=== PATIENT | male | born 1970 | race African-American/Black ===

== ENCOUNTER 2016-09-18 23:09 | Emergency (ER) | payer MEDICAID ==
[~2016-09-18] VITALS: Ht 175.3 cm; Wt 81.6 kg
[2016-09-18 23:21] VITALS: BP 142/93
[2016-09-19] MEDS ORDERED: SODIUM CHLORIDE 0.9% 1,000 ML IVB ONE (00:12)
[2016-09-19] MEDS ORDERED: LORazepam 2MG/ML-1ML VIAL IV ONE (00:15)
[2016-09-19] MEDS ORDERED: cloNIDine HCL 0.1 MG TAB PO ONE (00:15)
[2016-09-19 00:48] LABS: Salicylate 2.8 mg/dL (2.8-20.0)
== END 2016-09-19 04:29 | disposition home or self-care (01) ==
LOC: ER 23:43
DX: F11.23 Opioid dependence with withdrawal (principal); R45.851 Suicidal ideations; F41.9 Anxiety disorder, unspecified; F32.9 Major depressive disorder, single episode, unspecified; I10 Essential (primary) hypertension; F17.200 Nicotine dependence, unspecified, uncomplicated
CPT/HCPCS: 36415; 71010; 80307; 80320; 80329; 94761; 96361; 96374; 99285; J2060; J7030

== ENCOUNTER 2017-09-27 20:26 | Emergency (ER) | payer MEDICAID ==
[~2017-09-27] VITALS: Ht 175.3 cm; Wt 82.1 kg
[2017-09-27 21:56] VITALS: BP 136/93
[2017-09-27 22:09] LABS: Basophils # (auto) 0.1 uL; Basophils % (auto) 0.4 % (0.0-2.0); Eosinophils # (auto) 0.1 uL; Eosinophils % (auto) 0.6 % (0.0-7.0); Hematocrit 46.6 % (41.0-53.0); Hemoglobin 15.7 g/dL (13.5-17.5); Lymphocytes # (auto) 2.8 uL; Lymphocytes % (auto) 19.1 % (10.0-50.0); Mean Corpuscular Hemoglobin 30.3 pg (28.0-32.0); Mean Corpuscular Hgb Conc. 33.6 g/dL (32.0-36.0); Mean Corpuscular Volume 90.1 fL (80.0-100.0); Monocytes % (auto) 6.9 % (0.0-12.0); Neutrophils # (auto) 10.8 uL; Nucleated Red Blood Cells % 0.8 %; Platelet Count (auto) 443 10^3/uL (140-450); Red Blood Cells 5.17 10^6/uL (4.5-5.90); Red Cell Distribution Width 13.5 % (11.8-14.3); White Blood Cell 14.7 10^3/uL (4.4-10.8)
[2017-09-27] MEDS ORDERED: SODIUM CHLORIDE 0.9% 2,000 ML IV ONE (22:15)
[2017-09-27 22:29] LABS: Albumin 4.4 g/dL (3.4-5.0); BUN/Creatinine Ratio 13.7; Bilirubin, Total 1.4 mg/dL (0.2-1.0); Calcium 9.3 mg/dL (8.5-10.1); Magnesium 2.5 mg/dL (1.6-2.6); Partial Thromboplastin Time 29.1 sec (23.78-33.04); Potassium 3.6 mmol/L (3.5-5.1); Prothrombin Time 10.7 sec (9.27-12.13); Total Protein 8.8 g/dL (6.4-8.2)
== END 2017-09-28 02:00 | disposition home or self-care (01) ==
LOC: EDBD 20:26 → ER 20:26
DX: E86.0 Dehydration (principal); F15.10 Other stimulant abuse, uncomplicated; F41.9 Anxiety disorder, unspecified; F32.9 Major depressive disorder, single episode, unspecified; I10 Essential (primary) hypertension; F17.210 Nicotine dependence, cigarettes, uncomplicated; F12.10 Cannabis abuse, uncomplicated; Z88.6 Allergy status to analgesic agent
CPT/HCPCS: 36415; 80053; 82150; 83690; 83735; 85025; 85610; 85730; 94761; 96360; 99285; J7030

== ENCOUNTER 2017-12-18 01:45 | Emergency (ER) | payer MEDICAID ==
[~2017-12-18] VITALS: Ht 175.3 cm; Wt 81.6 kg
[2017-12-18] MEDS ORDERED: ACETAMINOPHEN 650 mg PER 20 mL UD ONE (02:14)
[2017-12-18] MEDS ORDERED: ACETAMINOPHEN 650 mg PER 20 mL UD GT ONE (02:15)
[2017-12-18] MEDS ORDERED: SODIUM CHLORIDE 0.9% 1,000 ML IV ONE ×2 (05:00→07:00)
[2017-12-18] MEDS ORDERED: IOHEXOL 300 MG/ML 100ML BOTTLE IJ ONE (05:04)
[2017-12-18] MEDS ORDERED: CLINDAMYCIN 900MG IV 50 ML IV ONE (07:00)
[2017-12-18] MEDS ORDERED: methylPREDNISolone SOD SUCC 125 MG/2 ML VL IV ONE (07:00)
[2017-12-18] MEDS ORDERED: cefTRIAXone SOD 1,000 MG VL IM ONE (07:15)
[2017-12-18] MEDS ORDERED: methylPREDNISolone SOD SUCC 125 MG/2 ML VL IM ONE (07:15)
[2017-12-18 07:40] VITALS: BP 130/72
== END 2017-12-18 07:50 | disposition home or self-care (01) ==
LOC: ER 01:45
DX: J36 Peritonsillar abscess (principal); F17.210 Nicotine dependence, cigarettes, uncomplicated; F12.90 Cannabis use, unspecified, uncomplicated; F15.90 Other stimulant use, unspecified, uncomplicated; I10 Essential (primary) hypertension; Z88.6 Allergy status to analgesic agent
CPT/HCPCS: 70490; 96372; 99284; J0696; J2930; J7030

== ENCOUNTER 2018-04-20 13:04 | Emergency (ER) | payer MEDICAID ==
[~2018-04-20] VITALS: Ht 175.3 cm; Wt 86.0 kg
[2018-04-20 13:26] VITALS: BP 174/104
[2018-04-20] MEDS ORDERED: cefTRIAXone 1GM/50ML D5W 50 ML IV ONE (16:30)
[2018-04-20] MEDS ORDERED: TETANUS-DIPTH-ACEL PERTUSSIS 0.5ML SYRG IM ONE (16:45)
[2018-04-20] MEDS ORDERED: cefTRIAXone SOD 1,000 MG VL IM ONE ×2 (16:45→17:45)
[2018-04-20] MEDS ORDERED: cefTRIAXone SOD 1,000 MG VL ONE (17:39)
== END 2018-04-20 17:56 | disposition left against medical advice (07) ==
LOC: ER 13:04
DX: S61.432A Puncture wound without foreign body of left hand, initial encounter (principal); F17.210 Nicotine dependence, cigarettes, uncomplicated; F12.10 Cannabis abuse, uncomplicated; I10 Essential (primary) hypertension; F15.10 Other stimulant abuse, uncomplicated; Z88.6 Allergy status to analgesic agent; W26.0XXA Contact with knife, initial encounter; Y93.89 Activity, other specified; Y92.89 Other specified places as the place of occurrence of the external cause; Y99.8 Other external cause status
CPT/HCPCS: 73130; 73200; 90471; 90715; 96372; 99284; J0696

== ENCOUNTER 2018-06-13 11:20 | Emergency (ER) | payer MEDICAID ==
[~2018-06-13] VITALS: Ht 172.7 cm; Wt 81.6 kg
[2018-06-13] MEDS ORDERED: cefTRIAXone SOD 1,000 MG VL IM ONE (12:00)
[2018-06-13] MEDS ORDERED: CLINDAMYCIN 600 MG/4 ML VL IM ONE (12:00)
[2018-06-13 14:28] LABS: Basophils # (auto) 0 uL; Basophils % (auto) 0.4 % (0.0-2.0); Eosinophils # (auto) 0.1 uL; Eosinophils % (auto) 1.1 % (0.0-7.0); Hematocrit 42.8 % (41.0-53.0); Hemoglobin 14.2 g/dL (13.5-17.5); Lymphocytes # (auto) 1.7 uL; Lymphocytes % (auto) 14.5 % (10.0-50.0); Mean Corpuscular Hemoglobin 29.8 pg (28.0-32.0); Mean Corpuscular Hgb Conc. 33.2 g/dL (32.0-36.0); Mean Corpuscular Volume 89.8 fL (80.0-100.0); Monocytes # (auto) 0.8 uL; Neutrophils # (auto) 9.2 uL; Platelet Count (auto) 356 10^3/uL (140-450); Red Blood Cells 4.77 10^6/uL (4.5-5.90); Red Cell Distribution Width 12.4 % (11.8-14.3); White Blood Cell 11.9 10^3/uL (4.4-10.8)
[2018-06-13 14:39] LABS: Potassium 3.5 mmol/L (3.5-5.1)
[2018-06-13 14:42] LABS: Calcium 8.9 mg/dL (8.5-10.1)
[2018-06-13 14:45] LABS: BUN/Creatinine Ratio 21.3
[2018-06-13 14:48] LABS: Bilirubin, Total 1.2 mg/dL (0.2-1.0); Total Protein 8.7 g/dL (6.4-8.2)
[2018-06-13] MEDS ORDERED: LIDOCAINE 1% HCL (LOCAL ANESTH.) INJ 20ML MDV ONE (16:06)
[2018-06-13 16:15] VITALS: BP 136/81
[2018-06-13] MEDS ORDERED: LIDOCAINE 1% HCL (LOCAL ANESTH.) INJ 20ML MDV IJ ONE (16:30)
== END 2018-06-13 17:25 | disposition home or self-care (01) ==
LOC: EDBD 11:20 → ER 11:44
DX: L03.113 Cellulitis of right upper limb (principal); F19.10 Other psychoactive substance abuse, uncomplicated; I10 Essential (primary) hypertension; F17.210 Nicotine dependence, cigarettes, uncomplicated; F12.90 Cannabis use, unspecified, uncomplicated; F15.90 Other stimulant use, unspecified, uncomplicated; Z88.6 Allergy status to analgesic agent
CPT/HCPCS: 36415; 80053; 85025; 87040; 96372; 99283; J0696; J2001

== ENCOUNTER 2020-04-21 18:01 | Emergency (ER) | payer MEDICAID ==
[~2020-04-21] VITALS: Ht 175.3 cm; Wt 90.7 kg
[2020-04-21 18:34] VITALS: BP 173/96
== END 2020-04-21 19:49 | disposition home or self-care (01) ==
LOC: ER 18:01 → EDSEX 18:01 → ER 19:49
DX: L02.413 Cutaneous abscess of right upper limb (principal); I10 Essential (primary) hypertension; F11.10 Opioid abuse, uncomplicated; F41.9 Anxiety disorder, unspecified; F32.9 Major depressive disorder, single episode, unspecified; F12.10 Cannabis abuse, uncomplicated; F15.10 Other stimulant abuse, uncomplicated; Z88.6 Allergy status to analgesic agent

== ENCOUNTER 2022-11-27 17:22 | Emergency (ER) | payer MEDICAID ==
[~2022-11-27] VITALS: Ht 182.9 cm; Wt 100.0 kg
[2022-11-27 17:56] VITALS: O2SAT 98
[2022-11-27] MEDS ORDERED: ONDANSETRON HCL 4 MG/2 ML VIAL IV ONE (18:30)
[2022-11-27] MEDS ORDERED: MORPHINE SULFATE 4 MG/ML SYR/VIAL IV ONE ×2 (18:30)
[2022-11-27 19:28] LABS: Urine Bacteria NONE SEEN /hpf (None Seen); Urine Blood Negative /uL (Negative); Urine Clarity Clear (Clear); Urine Color Yellow (Yellow); Urine Mucus FEW (None Seen); Urine Protein, UAD 1+ (Negative); Urine Specific Gravity 1.029 (1.001-1.035); Urine Sperm PRESENT /hpf (None Seen); Urine WBC 11 /hpf (0 - 3); Urine pH 6.5 (5.0-8.0)
[2022-11-27 19:50] VITALS: PULSE 88; RESP 20; O2SAT 95
[2022-11-27 20:30] VITALS: O2SAT 90
[2022-11-27] MEDS ORDERED: HYDR-4902 PO (21:36)
[2022-11-27] MEDS ORDERED: CYCL-837 PO (21:36)
[2022-11-27 22:05] VITALS: BP 166/84; PULSE 85; RESP 18
[2022-11-27] MEDS ORDERED: diazePAM 5 MG TAB PO ONE (22:15)
== END 2022-11-28 00:35 | disposition home or self-care (01) ==
LOC: ER 17:22 → EDBD 17:22 → ER 22:55
DX: S42.491A Other displaced fracture of lower end of right humerus, initial encounter for closed fracture (principal); S09.8XXA Other specified injuries of head, initial encounter; F17.210 Nicotine dependence, cigarettes, uncomplicated; F12.10 Cannabis abuse, uncomplicated; F15.10 Other stimulant abuse, uncomplicated; F14.10 Cocaine abuse, uncomplicated; I10 Essential (primary) hypertension; Z88.6 Allergy status to analgesic agent; V49.9XXA Car occupant (driver) (passenger) injured in unspecified traffic accident, initial encounter; W22.10XA Striking against or struck by unspecified automobile airbag, initial encounter; Y93.89 Activity, other specified; Y92.89 Other specified places as the place of occurrence of the external cause; Y99.8 Other external cause status
CPT/HCPCS: 29105; 70450; 72125; 73060; 73080; 73110; 74176; 81001; 93005; 96374; 96375; 96376; 99285; J2270; J2405

== ENCOUNTER 2023-09-04 17:05 | Emergency (ER) | payer MEDICAID, OTHER ==
[~2023-09-04] VITALS: Ht 177.8 cm; Wt 110.0 kg
[~2023-09-04 17:05] MED LIST: CYCL-837 PO; HYDR-4902 PO
[2023-09-04 17:30] VITALS: RESP 16
[2023-09-04] MEDS ORDERED: NALO4SPR2 (18:42)
[2023-09-04] MEDS: SODIUM CHLORIDE 0.9% 1,000 ML IV ONE (18:48)
[2023-09-04 19:02] LABS: Basophils # (auto) 0.1 10 ^3/uL (0-0.2); Basophils % (auto) 0.6 % (0.0-2.0); Eosinophils # (auto) 0.1 10 ^3/uL (0-0.8); Eosinophils % (auto) 0.6 % (0.0-7.0); Hematocrit 44.3 % (41.0-53.0); Hemoglobin 15.1 g/dL (13.5-17.5); Lymphocytes # (auto) 2.8 10 ^3/uL (0.4-5.4); Lymphocytes % (auto) 25.3 % (10.0-50.0); Mean Corpuscular Hemoglobin 30.4 pg (28.0-32.0); Mean Corpuscular Volume 89.5 fL (80.0-100.0); Monocytes # (auto) 0.9 10 ^3/uL (0-1.3); Monocytes % (auto) 7.8 % (0.0-12.0); Neutrophils # (auto) 7.2 10 ^3/uL (1.6-8.6); Neutrophils % (auto) 65.7 % (37.0-80.0); Nucleated Red Blood Cells % 0.3 %; Red Blood Cells 4.95 10^6/uL (4.5-5.90); Red Cell Distribution Width 12.6 % (11.8-14.3); White Blood Cell 10.9 10^3/uL (4.4-10.8)
[2023-09-04 19:21] LABS: Acetaminophen < 2.0 UG/ML (10.0-20.0); Alanine Aminotransferase 54 U/L (7-40); Albumin 4.4 g/dL (3.2-4.8); Alkaline Phosphatase 138 U/L (46-116); Anion Gap 6 (5-15); Aspartate Aminotransferase 37 U/L (13-40); BUN/Creatinine Ratio 9.3 (10.0-20.0); Bilirubin, Total 1.2 mg/dL (0.2-1.0); Blood Alcohol < 3.0 mg/dL (<10); Blood Urea Nitrogen 9 mg/dL (9-23); Calcium 9.3 mg/dL (8.5-10.1); Carbon Dioxide 27 mmol/L (20-30); Chloride 108 mmol/L (98-107); Glucose 100 mg/dL (74-106); Potassium 2.7 mmol/L (3.5-5.1); Sodium 141 mmol/L (136-145); Total Protein 7.7 g/dL (5.7-8.2)
[2023-09-04 19:26] LABS: Salicylate < 3.0 mg/dL (2.8-20.0)
[2023-09-04 19:45] VITALS: PULSE 84; RESP 18; O2SAT 98
[2023-09-04 21:25] LABS: Amphetamine Screen, Urine Pos (NEGATIVE); Barbiturate Scree,Urine Neg (NEGATIVE); Benzodiazephine Screen, Urine Neg (NEGATIVE); Cocaine Screen, Urine Neg (NEGATIVE)
[2023-09-04 21:26] LABS: Cannabinoid Screen, Urine Pos (NEGATIVE); Opiate Scree,Urine Neg (NEGATIVE); Phencyclidine Screen, Urine Pos (NEGATIVE)
[2023-09-04] MEDS: POTASSIUM CHL 20MEQ/100ML 100 ML IV ONE (21:27)
[2023-09-04 21:53] LABS: Urine Bacteria FEW /hpf (None Seen); Urine Blood 1+ /uL (Negative); Urine Clarity Turbid (Clear); Urine Color Yellow (Yellow); Urine Hyaline Cast MOD /lpf (0 - 2); Urine Mucus FEW (None Seen); Urine Protein, UAD 1+ (Negative); Urine Specific Gravity 1.026 (1.001-1.035); Urine Urobilinogen 4 mg/dL (Negative); Urine WBC 297 /hpf (0 - 3); Urine WBC Clumps PRESENT /hpf (None Seen)
[2023-09-04] MEDS ORDERED: CEPH500C PO (22:19)
[2023-09-04] MEDS: cefTRIAXone 1GM/50ML D5W 50 ML IV ONE (23:25)
[2023-09-04 23:30] VITALS: BP 156/85; PULSE 99; RESP 16; O2SAT 95
== END 2023-09-05 00:02 | disposition home or self-care (01) ==
LOC: EDBD 17:05 → EDUNIT# 17:05 → ER 17:05
DX: T40.411A Poisoning by fentanyl or fentanyl analogs, accidental (unintentional), initial encounter (principal); N39.0 Urinary tract infection, site not specified; E87.6 Hypokalemia; I10 Essential (primary) hypertension; F41.9 Anxiety disorder, unspecified; F32.9 Major depressive disorder, single episode, unspecified; F17.210 Nicotine dependence, cigarettes, uncomplicated; F15.90 Other stimulant use, unspecified, uncomplicated; Z88.8 Allergy status to other drugs, medicaments and biological substances; Z79.899 Other long term (current) drug therapy; Y92.89 Other specified places as the place of occurrence of the external cause
CPT/HCPCS: 36415; 80053; 80307; 80320; 80329; 81001; 85025; 93005; 96361; 96365; 96366; 96367; 99285; J0696; J3480; J7030

== ENCOUNTER 2023-09-21 16:10 | Emergency (ER) | payer MEDICAID ==
[~2023-09-21] VITALS: Ht 175.3 cm; Wt 97.7 kg
[~2023-09-21 16:10] MED LIST changes: +CEPH500C PO; +NALO4SPR2
[2023-09-21 16:30] VITALS: PULSE 81; RESP 14; O2SAT 96
[2023-09-21 17:04] LABS: Basophils # (auto) 0 10 ^3/uL (0-0.2); Basophils % (auto) 0.5 % (0.0-2.0); Eosinophils # (auto) 0.1 10 ^3/uL (0-0.8); Eosinophils % (auto) 1.7 % (0.0-7.0); Hemoglobin 13.6 g/dL (13.5-17.5); Lymphocytes % (auto) 28.6 % (10.0-50.0); Mean Corpuscular Hemoglobin 30.3 pg (28.0-32.0); Mean Corpuscular Hgb Conc. 33.9 g/dL (32.0-36.0); Mean Corpuscular Volume 89.5 fL (80.0-100.0); Monocytes # (auto) 0.6 10 ^3/uL (0-1.3); Neutrophils # (auto) 4.3 10 ^3/uL (1.6-8.6); Neutrophils % (auto) 60.2 % (37.0-80.0); Red Blood Cells 4.47 10^6/uL (4.5-5.90); Red Cell Distribution Width 12.6 % (11.8-14.3); White Blood Cell 7.2 10^3/uL (4.4-10.8)
[2023-09-21 17:22] LABS: Acetaminophen < 2.0 UG/ML (10.0-20.0); Alanine Aminotransferase 56 U/L (7-40); Alkaline Phosphatase 128 U/L (46-116); Anion Gap 5 (5-15); Aspartate Aminotransferase 51 U/L (13-40); BUN/Creatinine Ratio 11.8 (10.0-20.0); Blood Urea Nitrogen 9 mg/dL (9-23); Carbon Dioxide 34 mmol/L (20-30); Chloride 103 mmol/L (98-107); Potassium 3.8 mmol/L (3.5-5.1); Sodium 142 mmol/L (136-145); Total Protein 7.1 g/dL (5.7-8.2)
[2023-09-21 17:33] LABS: Glucose 99 mg/dL (74-106)
[2023-09-21 17:53] LABS: Salicylate < 3.0 mg/dL (2.8-20.0)
[2023-09-21 19:20] VITALS: PULSE 79; RESP 13; TEMP 97.6; O2SAT 96
[2023-09-21 21:19] VITALS: BP 174/90; PULSE 76; RESP 15; O2SAT 93
== END 2023-09-21 21:20 | disposition home or self-care (01) ==
LOC: ER 16:10 → EDUNIT# 16:10 → EDBD 16:10 → ER 21:20
DX: T60.91XA Toxic effect of unspecified pesticide, accidental (unintentional), initial encounter (principal); F41.9 Anxiety disorder, unspecified; F32.9 Major depressive disorder, single episode, unspecified; I10 Essential (primary) hypertension; F17.210 Nicotine dependence, cigarettes, uncomplicated; F12.10 Cannabis abuse, uncomplicated; F15.10 Other stimulant abuse, uncomplicated; F14.10 Cocaine abuse, uncomplicated; Z71.1 Person with feared health complaint in whom no diagnosis is made; Y92.9 Unspecified place or not applicable
CPT/HCPCS: 36415; 80053; 80320; 80329; 85025; 93005

== ENCOUNTER 2023-12-06 16:04 | Emergency (ER) | payer MEDICAID ==
[~2023-12-06] VITALS: Ht 175.3 cm; Wt 95.3 kg
[2023-12-06 16:19] VITALS: O2SAT 95
[2023-12-06 17:24] VITALS: BP 172/93; PULSE 89; RESP 18
[2023-12-06] MEDS: MEPERIDINE HCL (50 MG/ML) 1 ML VIAL IM ONE (17:24)
[2023-12-06] MEDS: ONDANSETRON ODT 4 MG TAB PO ONE (17:30)
[2023-12-06] MEDS ORDERED: HYDR-4798 PO (17:38)
[2023-12-06] MEDS ORDERED: PRED20TA2 PO (17:38)
== END 2023-12-06 17:53 | disposition home or self-care (01) ==
LOC: ER 16:04
DX: M51.369 Other intervertebral disc degeneration, lumbar region without mention of lumbar back pain or lower extremity pain (principal); G89.29 Other chronic pain; M54.50 Low back pain, unspecified; M47.816 Spondylosis without myelopathy or radiculopathy, lumbar region; I10 Essential (primary) hypertension; F41.9 Anxiety disorder, unspecified; F32.9 Major depressive disorder, single episode, unspecified; F17.210 Nicotine dependence, cigarettes, uncomplicated; F15.90 Other stimulant use, unspecified, uncomplicated; Z88.6 Allergy status to analgesic agent; Z79.899 Other long term (current) drug therapy; Z88.8 Allergy status to other drugs, medicaments and biological substances
CPT/HCPCS: 72100; 96372; 99283; J2175; Q0162

== ENCOUNTER 2024-05-22 08:00 | Inpatient (IN) | payer MEDICAID, OTHER ==
[~2024-05-22] VITALS: Ht 175.3 cm; Wt 91.0 kg
[~2024-05-22 08:00] MED LIST changes: +HYDR-4798 PO; +PRED20TA2 PO
--- NOTE | 2024-05-22 08:07 | ED.PDOC ---
History of Present Illness HPI Comments 42Y M presents to ED via EMS for chief complaint OD. Unable to obtain history from patient. Per EMS, pt was found in the parking lot of [facility] and was given Narcan 6mg. Pupils 1mm bilaterally. No other symptoms or history reported. Chief Complaint: Overdose Time Seen by : 07:55 Reviewed Notes: Nurses Notes, Protector Plate Attacher Notes, Medications, Allergies Allergies: Coded Allergies: Tramadol (Verified Allergy, Mild, 12/18/17) Ibuprofen (Verified Allergy, Unknown, 09/18/16) UNOBTAINABLE (Unverified , 05/22/24) Home Meds Active Scripts Hydrocodone-Acetaminophen (Hydrocodone Bitartrate/AC 10-325 mg) 1 Tab Tab, 1 TAB PO BID, #8 TAB Prov:SHARRON MENDIETA 12/06/23 Prednisone (Prednisone) 20 Mg Tab, 40 MG PO DAILY, #20 TAB Prov:SHARRON MENDIETA 12/06/23 Cephalexin Monohydrate (Cephalexin) 500 Mg Cap, 1 CAP PO QID for 10 Days, #40 CAP Prov:KEIRY TURPIN MD 09/04/23 Naloxone HCl (Narcan) 4 Mg/0.1 Ml Spr, 4 MG NA PRN PRN, #1 BOTTLE 1 Refill Prov:KEIRY TURPIN MD 09/04/23 Hydrocodone-Acetaminophen (Hydrocodone Bitartrate/AC 5-325 mg) 1 Tab Tab, 1 TAB PO TID PRN, #30 TAB Prov:SOFYA THRASHER 11/27/22 Cyclobenzaprine Hcl (Cyclobenzaprine Hcl) 5 Mg Tab, 1 TAB PO TID PRN, #30 TAB Prov:SOFYA THRASHER 11/27/22 Information Source: Emergency Med Personnel Mode of Arrival: EMS Severity: Moderate Timing: Hours Duration: Since onset Prehospital treatment: 12 Lead EKG, Other (narcan 6mg) Past Medical History PAST MEDICAL HISTORY: Unknown Surgical History: Unknown Family History Family History: Unknown Social History Smoker: Unknown Alcohol: Unknown Drugs: Unknown Lives In: Homeless Constitutional: denies: chills, diaphoresis, fatigue, fever, malaise, sweats, weakness, others EENTM: denies: blurred vision, double vision, ear bleeding, ear discharge, ear drainage, ear pain, ear ringing, eye pain, eye redness, hearing loss, mouth pain, mouth swelling, nasal discharge, nose bleeding, nose congestion, nose pain, photophobia, tearing, throat pain, throat swelling, voice changes, others Respiratory: denies: cough, hemoptysis, orthopnea, SOB at rest, shortness of breath, SOB with excertion, stridor, wheezing, others Cardiovascular: denies: chest pain, dizzy spells, diaphoresis, Dyspnea on exertion, edema, irregular heart beat, left arm pain, lightheadedness, palpitations, PND, syncope, others Gastrointestinal: denies: abdomen distended, abdominal pain, blood streaked bowels, constipated, diarrhea, dysphagia, difficulty swallowing, hematemesis, melena, nausea, poor appetite, poor fluid intake, rectal bleeding, rectal pain, vomiting, others Genitourinary: denies: burning, dysuria, flank pain, frequency, hematuria, incontinence, penile discharge, penile sore, pain, testicle pain, testicle swelling, urgency, others Neurological: denies: dizziness, fainting, headache, left sided numbness, left sided weakness, numbness, paresthesia, pre-existing deficit, right sided numbn ess, right sided weakness, seizure, speech problems, tingling, tremors, weakness, others Musculoskeletal: denies: back pain, gout, joint pain, joint swelling, muscle pain, muscle stiffness, neck pain, others Integumetry: denies: bruises, change in color, change in hair/nails, dryness, laceration, lesions, lumps, rash, wounds, others Allergic/Immunocompromised: denies: Difficulty Healing, Frequent Infections, Hives, Itching, others Hematologic/Lymphatic: denies: anemia, blood clots, easy bleeding, easy bruising, swollen glands, others Endocrine: denies: excessive hunger, excessive sweating, excessive thirst, excessive urination, flushing, intolerance to cold, intolerance to heat, unexplained weight gain, unexplained weight loss, others Psychiatric: denies: anxiety, bipolar disorder, depression, hopeless, panic disorder, schizophrenia, sleepless, suicidal, others Unable to Obtain due to: Altered Mental Status All Other Systems: Reviewed and Negative Physical Exam General Appearance: Mild Distress HEENT: Pharynx Normal Neck: Full Range of Motion, Non-Tender, Normal, Normal Inspection Respiratory: Chest Non-Tender, Lungs Clear, No Accessory Muscle Use, No Respiratory Distress, Normal Breath Sounds Cardiovascular: No Edema, No Murmur, No Gallop, Normal Peripheral Pulses, Regular Rate/Rhythm Breast Exam: Deferred Gastrointestinal: Non Tender, Soft Genitalia: Deferred Pelvic: Deferred Rectal: Deferred Extremities: No calf tenderness, Normal range of motion, Non-tender, No pedal edema Musculoskeletal : Apperance: Normal Neurologic: Alert, No Motor Deficits Cerebellar Function: NOT DONE Reflexes: NOT DONE Skin: Dry, Warm, Other Lymphatic: No Adenopathy Was a procedure done? Was a procedure done?: No EKG EKG : Pulse Rate (adult): 97 Cardiac Rhythm: NSR Block: None Hypertrophy: LVH ST: Normal Differential Dx Considerations may include: drug overdose X-Ray, Labs, Meds, VS Vital Signs Date Time Temp Pulse Resp B/P (MAP) Pulse Ox O2 Delivery O2 Flow Rate FiO2 05/22/24 18:00 88 17 146/77 (100) 95 05/22/24 16:00 87 15 157/85 (109) 96 05/22/24 16:00 91 05/22/24 14:00 90 17 157/74 (101) 99 05/22/24 12:00 91 20 172/84 (113) 93 05/22/24 12:00 88 05/22/24 10:18 91 20 171/78 (109) 92 05/22/24 09:00 91 24 94 Room Air* 0 21 05/22/24 08:29 97 05/22/24 08:15 98.5 97 35 175/93 (120) 94 98.5 05/22/24 08:15 98 05/22/24 08:03 98.2 102 34 159/117 (131) 97 98.2 05/22/24 08:00 97 Lab Test 05/22/24 08:49 05/22/24 08:25 Range/Units White Blood Count 8.8 4.4-10.8 10^3/uL Red Blood Count 5.19 4.5-5.90 10^6/uL Hemoglobin 15.5 13.5-17.5 g/dL Hematocrit 47.5 41.0-53.0 % Mean Corpuscular Volume 91.5 80.0-100.0 fL Mean Corpuscular Hemoglobin 29.8 28.0-32.0 pg Mean Corpuscular Hemoglobin Concent 32.6 32.0-36.0 g/dL Red Cell Distribution Width 12.8 11.8-14.3 % Platelet Count 213 140-450 10^3/uL Mean Platelet Volume 7.3 6.9-10.8 fL Neutrophils (%) (Auto) 72.0 37.0-80.0 % Lymphocytes (%) (Auto) 20.2 10.0-50.0 % Monocytes (%) (Auto) 6.5 0.0-12.0 % Eosinophils (%) (Auto) 0.9 0.0-7.0 % Basophils (%) (Auto) 0.4 0.0-2.0 % Neutrophils # (Auto) 6.3 1.6-8.6 10 ^3/uL Lymphocytes # (Auto) 1.8 0.4-5.4 10 ^3/uL Monocytes # (Auto) 0.6 0-1.3 10 ^3/uL Eosinophils # (Auto) 0.1 0-0.8 10 ^3/uL Basophils # (Auto) 0 0-0.2 10 ^3/uL Nucleated Red Blood Cells 0.7 % Sodium Level 141 136-145 mmol/L Potassium Level 3.5 3.5-5.1 mmol/L Chloride Level 106 98-107 mmol/L Carbon Dioxide Level 24 20-31 mmol/L Anion Gap 11 5-15 Blood Urea Nitrogen 10 9-23 mg/dL Creatinine 0.89 0.700-1.30 mg/dL Glomerular Filtration Rate Calc 104 >90 mL/min BUN/Creatinine Ratio 11.2 10.0-20.0 Serum Glucose 93 74-106 mg/dL Calcium Level 9.6 8.7-10.4 mg/dL Total Bilirubin 0.9 0.2-1.0 mg/dL Aspartate Amino Transferase (AST) 65 H 13-40 U/L Alanine Aminotransferase (ALT) 72 H 7-40 U/L Alkaline Phosphatase 157 H 46-116 U/L Troponin I High Sensitivity 24 </=54 ng/L Total Protein 8.2 5.7-8.2 g/dL Albumin 4.5 3.2-4.8 g/dL Urine Color Light-yellow Yellow Urine Clarity Clear Clear Urine pH 5.5 5.0-9.0 Urine Specific [place] 1.010 1.001-1.035 Urine Protein Negative Negative Urine Ketones Negative Negative Urine Blood 1+ H Negative /uL Urine Nitrite Negative Negative Urine Bilirubin Negative Negative Urine Urobilinogen Normal Negative mg/dL Urine Leukocyte Esterase 2+ Negative /uL Urine RBC 5 0 - 3 /hpf Urine Microscopic WBC 39 H 0-3 /HPF Urine Squamous Epithelial Cells Few <5 /hpf Urine Bacteria Few H None Seen /hpf Urine Glucose Normal Normal mg/dL Urine Opiates Screen Neg NEGATIVE Urine Fentanyl Screen Pos NEGATIVE Urine Barbiturates Screen Neg NEGATIVE Urine Phencyclidine Screen Pos NEGATIVE Urine Amphetamines Screen Pos NEGATIVE Urine Benzodiazepines Screen Neg NEGATIVE Urine Cocaine Screen Neg NEGATIVE Urine Cannabinoids Screen Pos NEGATIVE Current Medications Medications (Trade) Dose Ordered Sig/Priya Route Start Time Stop Time Status Last Admin Sodium Chloride 1,000 ml @ 1,000 mls/hr Q1H ONCE IV 05/22/24 08:30 05/22/24 09:29 DC 05/22/24 09:29 Haloperidol Lactate (Haldol) 10 mg ONCE ONCE IM 05/22/24 10:15 05/22/24 10:16 DC 05/22/24 10:15 Diphenhydramine HCl (Benadryl Injection) 50 mg ONCE ONCE IM 05/22/24 10:45 05/22/24 11:03 DC 05/22/24 11:07 Lorazepam (Ativan Inj) 2 mg ONCE ONCE IM 05/22/24 10:45 05/22/24 11:06 DC 05/22/24 11:07 The patient was given Rocephin for urinary tract infection. The patient was sedated secondary to severe agitation and combativeness. The patient will be admitted to the hospitalist for further evaluation and care. Time of 1ST Reevaluation: 08:25 Reevaluation 1ST: Unchanged Patient Education/Counseling: Diagnosis, Treatment Family Education/Counseling: No Family Present Departure 1 Departure Time of Disposition: 19:23 Impression: Primary Impression: Metabolic encephalopathy Additional Impressions: Polysubstance abuse Altered level of consciousness UTI (urinary tract infection) Qualified Codes: N30.00 - Acute cystitis without hematuria Disposition: ADMITTED INPATIENT Admit to: [facility] Condition: Guarded Critical Care Note Critical Care Time?: No Stability Stability form required: No Heart Score Heart Score: Heart Score Response (Comments) Value History N/A 0 EKG N/A 0 Age N/A 0 Risk Factors N/A 0 Troponin N/A 0 Total 0 I personally scribed for SHARA LO MD ([email or web address]) on 05/22/24 at 08:07. Electronically submitted by Lizzette Michaud (ChaCha). I personally scribed for SHARA LO MD ([email or web address]) on 05/22/24 at 08:29. Elect ronically submitted by Lizzette Michaud (ChaCha). SHARA LO MD May 22, 2024 08:07 SHORTY CEDILLO MD May 22, 2024 19:25
[2024-05-22 09:00] VITALS: PULSE 91; RESP 24; O2SAT 94
[2024-05-22 09:16] LABS: Cannabinoid Screen, Urine Pos (NEGATIVE)
[2024-05-22 09:17] LABS: Albumin 4.5 g/dL (3.2-4.8); Anion Gap 11 (5-15); BUN/Creatinine Ratio 11.2 (10.0-20.0); Blood Urea Nitrogen 10 mg/dL (9-23); Calcium 9.6 mg/dL (8.7-10.4); Carbon Dioxide 24 mmol/L (20-31); Chloride 106 mmol/L (98-107); Glucose 93 mg/dL (74-106); Potassium 3.5 mmol/L (3.5-5.1); Sodium 141 mmol/L (136-145)
[2024-05-22 09:18] LABS: Bilirubin, Total 0.9 mg/dL (0.2-1.0)
[2024-05-22 09:24] LABS: Basophils # (auto) 0 10 ^3/uL (0-0.2); Basophils % (auto) 0.4 % (0.0-2.0); Eosinophils # (auto) 0.1 10 ^3/uL (0-0.8); Eosinophils % (auto) 0.9 % (0.0-7.0); Hematocrit 47.5 % (41.0-53.0); Hemoglobin 15.5 g/dL (13.5-17.5); Lymphocytes # (auto) 1.8 10 ^3/uL (0.4-5.4); Lymphocytes % (auto) 20.2 % (10.0-50.0); Mean Corpuscular Hemoglobin 29.8 pg (28.0-32.0); Mean Corpuscular Hgb Conc. 32.6 g/dL (32.0-36.0); Mean Corpuscular Volume 91.5 fL (80.0-100.0); Monocytes # (auto) 0.6 10 ^3/uL (0-1.3); Monocytes % (auto) 6.5 % (0.0-12.0); Neutrophils # (auto) 6.3 10 ^3/uL (1.6-8.6); Nucleated Red Blood Cells % 0.7 %; Platelet Count (auto) 213 10^3/uL (140-450); Red Blood Cells 5.19 10^6/uL (4.5-5.90); Red Cell Distribution Width 12.8 % (11.8-14.3); White Blood Cell 8.8 10^3/uL (4.4-10.8)
[2024-05-22] MEDS: SODIUM CHLORIDE 0.9% 1,000 ML IV ONE (09:29)
[2024-05-22 09:35] LABS: Urine Bacteria FEW /hpf (None Seen); Urine Blood 1+ /uL (Negative); Urine Clarity Clear (Clear); Urine Color Light-Yellow (Yellow); Urine Protein, UAD Negative (Negative); Urine Squamous Epithelial Cell FEW /hpf (<5); Urine Urobilinogen Normal (Negative); Urine WBC 39 /HPF (0-3); Urine pH 5.5 (5.0-9.0)
[2024-05-22 09:50] LABS: Alanine Aminotransferase 72 U/L (7-40); Alkaline Phosphatase 157 U/L (46-116); Aspartate Aminotransferase 65 U/L (13-40); Total Protein 8.2 g/dL (5.7-8.2)
[2024-05-22 09:50] LABS: Amphetamine Screen, Urine Pos (NEGATIVE); Barbiturate Scree,Urine Neg (NEGATIVE); Benzodiazephine Screen, Urine Neg (NEGATIVE); Cocaine Screen, Urine Neg (NEGATIVE); Opiate Scree,Urine Neg (NEGATIVE); Phencyclidine Screen, Urine Pos (NEGATIVE)
[2024-05-22] MEDS: HALOPERIDOL LACTATE 5 MG/ML INJ VIAL ONE (10:07)
[2024-05-22] MEDS: diphenhdrAMINE HCL 50 MG/1 ML VL ONE (10:08)
[2024-05-22] MEDS: LORazepam 2MG/ML-1ML VIAL ONE (10:08)
[2024-05-22] MEDS ORDERED: diphenhdrAMINE HCL 50 MG/1 ML VL IV ONE (10:15)
[2024-05-22] MEDS: HALOPERIDOL LACTATE 5 MG/ML INJ VIAL IM ONE (10:15)
[2024-05-22] MEDS ORDERED: LORazepam 2MG/ML-1ML VIAL IV ONE (10:15)
[2024-05-22] MEDS: diphenhdrAMINE HCL 50 MG/1 ML VL IM ONE (11:07)
[2024-05-22] MEDS: LORazepam 2MG/ML-1ML VIAL IM ONE (11:07)
[2024-05-22 20:00] VITALS: O2SAT 95
[2024-05-22] MEDS ORDERED: NALOXONE HCL 0.4 MG/ML VIAL IV ONE (23:45)
[2024-05-22] MEDS ORDERED: LORazepam 2MG/ML-1ML VIAL IV PRN (23:45)
--- NOTE | 2024-05-22 23:49 | DVHHPRES ---
History of Present Illness Resident Creating Document: KARTHIK POWER RESDIENT History of Present Illness This is a 53-year-old male with past medical history of hypertension and polysubstance abuse brought to the hospital due to altered mental status. Patient was found altered in the parking lot of [employer], pupils were miotic and Narcan 6 mg was given at the scene. Upon my assessment at ER, the patient was lethargic, could not provide proper history. PMHx: Hypertension PSHx: No significant Family history: Not significant Social history: Patient smokes marijuana, cigarettes, methamphetamine, phencyclidine, fentanyl, lives with at home, per he is disabled due to mental status (possible schizophrenia) Home medication: Lisinopril Allergic history: Ibuprofen and tramadol Review of Systems Review of Systems Due to altered mental status, review of systems could not obtain. Allergies: Coded Allergies: Tramadol (Verified Allergy, Mild, 12/18/17) Ibuprofen (Verified Allergy, Unknown, 09/18/16) UNOBTAINABLE (Unverified , 05/22/24) Medications Current Medications Medications Dose Ordered Sig/Priya Route Start Time Stop Time Status Last Admin Dose Admin Lorazepam 1 mg Q2HP PRN IV 05/22/24 23:45 UNV Exam Vital Signs Vital Signs Date Time Temp Pulse Resp B/P (MAP) Pulse Ox O2 Delivery O2 Flow Rate FiO2 05/22/24 20:00 89 05/22/24 18:00 17 146/77 (100) 95 05/22/24 09:00 Room Air* 0 21 05/22/24 08:15 98.5 98.5 Exam General Appearance: Alert, Oriented X3, Cooperative, No acute distress HEENT: Atraumatic, PERRLA, EOMI, Mucous membrane moist/pink Respiratory: Clear to auscultation, Normal air movement Cardiovascular: Regular rate, Normal S1, Normal S2, No murmurs, no chest wall tenderness Abdominal: Normal bowel sounds, Soft, No tenderness, No hepatospenomegaly, No masses Extremities: No clubbing, No cyanosis, No edema, Normal pulses, No tenderness/swelling Skin: Superficial scratches observed on upper and lower limb Neuro: Normal gait, Normal speech, Strength at 5/5 X4 ext, Normal tone, Sensation intact, Cranial nerves 3-12 NL, Reflexes 2+, pupils bilaterally are mid constricted and reactive to the light Psych/Mental Status: Mental status NL, Mood NL Labs/Xrays Labs Test 05/22/24 08:49 05/22/24 08:25 Range/Units White Blood Count 8.8 4.4-10.8 10^3/uL Red Blood Count 5.19 4.5-5.90 10^6/uL Hemoglobin 15.5 13.5-17.5 g/dL Hematocrit 47.5 41.0-53.0 % Mean Corpuscular Volume 91.5 80.0-100.0 fL Mean Corpuscular Hemoglobin 29.8 28.0-32.0 pg Mean Corpuscular Hemoglobin Concent 32.6 32.0-36.0 g/dL Red Cell Distribution Width 12.8 11.8-14.3 % Platelet Count 213 140-450 10^3/uL Mean Platelet Volume 7.3 6.9-10.8 fL Neutrophils (%) (Auto) 72.0 37.0-80.0 % Lymphocytes (%) (Auto) 20.2 10.0-50.0 % Monocytes (%) (Auto) 6.5 0.0-12.0 % Eosinophils (%) (Auto) 0.9 0.0-7.0 % Basophils (%) (Auto) 0.4 0.0-2.0 % Neutrophils # (Auto) 6.3 1.6-8.6 10 ^3/uL Lymphocytes # (Auto) 1.8 0.4-5.4 10 ^3/uL Monocytes # (Auto) 0.6 0-1.3 10 ^3/uL Eosinophils # (Auto) 0.1 0-0.8 10 ^3/uL Basophils # (Auto) 0 0-0.2 10 ^3/uL Nucleated Red Blood Cells 0.7 % Sodium Level 141 136-145 mmol/L Potassium Level 3.5 3.5-5.1 mmol/L Chloride Level 106 98-107 mmol/L Carbon Dioxide Level 24 20-31 mmol/L Anion Gap 11 5-15 Blood Urea Nitrogen 10 9-23 mg/dL Creatinine 0.89 0.700-1.30 mg/dL Glomerular Filtration Rate Calc 104 >90 mL/min BUN/Creatinine Ratio 11.2 10.0-20.0 Serum Glucose 93 74-106 mg/dL Calcium Level 9.6 8.7-10.4 mg/dL Total Bilirubin 0.9 0.2-1.0 mg/dL Aspartate Amino Transferase (AST) 65 H 13-40 U/L Alanine Aminotransferase (ALT) 72 H 7-40 U/L Alkaline Phosphatase 157 H 46-116 U/L Troponin I High Sensitivity 24 </=54 ng/L Total Protein 8.2 5.7-8.2 g/dL Albumin 4.5 3.2-4.8 g/dL Urine Color Light-yellow Yellow Urine Clarity Clear Clear Urine pH 5.5 5.0-9.0 Urine Specific [place] 1.010 1.001-1.035 Urine Protein Negative Negative Urine Ketones Negative Negative Urine Blood 1+ H Negative /uL Urine Nitrite Negative Negative Urine Bilirubin Negative Negative Urine Urobilinogen Normal Negative mg/dL Urine Leukocyte Esterase 2+ Negative /uL Urine RBC 5 0 - 3 /hpf Urine Microscopic WBC 39 H 0-3 /HPF Urine Squamous Epithelial Cells Few <5 /hpf Urine Bacteria Few H None Seen /hpf Urine Glucose Normal Normal mg/dL Urine Opiates Screen Neg NEGATIVE Urine Fentanyl Screen Pos NEGATIVE Urine Barbiturates Screen Neg NEGATIVE Urine Phencyclidine Screen Pos NEGATIVE Urine Amphetamines Screen Pos NEGATIVE Urine Benzodiazepines Screen Neg NEGATIVE Urine Cocaine Screen Neg NEGATIVE Urine Cannabinoids Screen Pos NEGATIVE Assessment/Plan Assessment/Plan Acute toxic encephalopathy, due to polysubstance intoxication Methamphetamine, fentanyl, phencyclidine intoxication Hypertensive urgency, likely due to above EKGs shows T-wave inversion and ST depression on inferior leads Head CT scan shows no acute intracranial abnormalities UDS is positive for marijuana, PCP, methamphetamine and fentanyl Narcan Ativan p.r.n. Clonidine Start amlodipine and lisinopril IV fluid Telemetry Complicated UTI UA shows UTI picture Urine culture Empiric antibiotic, Rocephin IV fluid Transaminitis DIET: NPO DVT PROPHYLAXIS: Lovenox GI PROPHYLAXIS:: Protonix CODE STATUS: Goal of care discussed for more than 18 minutes with patient's , full code DISPOSITION: Telemetry Patient's status and plan discussed with the patient and patient's on the phone. Case discussed with Dr. Pizano. Plan discussed with: Patient, Other (RN) My Orders Orders - KARTHIK POWER RESDIENT Procedure Category Date Status Time Lorazepam 2mg/Ml Inj PHA 05/22/24 In Process (Ativan Inj) 23:45 Date of Service: May 22, 2024 Billing Provider: PATIENCE PIZANO MD Common Visit Codes: 10180-FAEWXTS INP/OBS CARE (HIGH) HAMILTONVIDHICHANTELLEJASVIR MÉNDEZ May 22, 2024 23:49 PATIENCE PIZANO MD May 24, 2024 09:03
[2024-05-23] MEDS ORDERED: NITROGLYCERIN 0.4 MG SL TAB SL PRN
[2024-05-23] MEDS: LORazepam 2MG/ML-1ML VIAL IM ONE (00:10)
[2024-05-23] MEDS ORDERED: ONDANSETRON HCL 4 MG/2 ML VIAL IV PRN (00:15)
[2024-05-23] MEDS: ASPirin 81 mg TAB PO ONE (00:46)
[2024-05-23] MEDS: ENOXAPARIN SOD 40 MG/0.4 ML SYRINGE SC ONE (00:46)
--- NOTE | 2024-05-23 01:04 | DVH ---
EXAM: CT HEAD WITHOUT CONTRAST INDICATION: ALOC TECHNIQUE: CT of the head without intravenous contrast. Radiation Dose : 1. Head: CT Dose: CTDI volume is 68.62 mGy. Dose-length product is 1487.73 mGy*cm The dose indicators for CT are the volume Computed Tomography (CT) Dose Index (CTDIvol) and the Dose Length Product (DLP), and are measured in units of mGy and mGy-cm, respectively. These indicators are not patient dose, but values generated from the CT scanner acquisition factors. The report includes radiation exposure data for exposures received during this examination. COMPARISON: CT HEAD WITHOUT CONTRAST on DOS: 11/27/22 FINDINGS: There is no evidence of acute intracranial hemorrhage, extra-axial collection, mass effect, midline s hift, herniation or hydrocephalus. The ventricles, sulci and cisterns are age appropriate. The schneider-white differentiation is intact. Bilateral maxillary mucosal sinus disease. The remaining visualized paranasal sinuses and mastoid air cells are clear. The surrounding soft tissues and osseous structures are unremarkable. IMPRESSION: 1. No acute intracranial abnormality. Radiation optimization: All CT scans at this facility use at least one of these dose optimization jaja hniques: automated exposure control mA and/or kV adjustment per patient size (includes targeted exam s where dose is matched to clinical indication) or iterative reconstruction.
[2024-05-23 01:09] LABS: INR 1.02 (0.9-1.15); Partial Thromboplastin Time 30.2 SEC (24.5-34.5); Prothrombin Time 10.8 sec (9.3-11.8)
[2024-05-23] MEDS: amLODIPine BESYLATE 5 MG TAB PO ONE (01:19)
[2024-05-23] MEDS: LISINOPRIL 5 MG TAB PO ONE (01:48)
[2024-05-23 01:55] LABS: Basophils # (auto) 0.1 10 ^3/uL (0-0.2); Basophils % (auto) 0.7 % (0.0-2.0); Eosinophils # (auto) 0.1 10 ^3/uL (0-0.8); Eosinophils % (auto) 0.5 % (0.0-7.0); Hematocrit 42.5 % (41.0-53.0); Hemoglobin 14.4 g/dL (13.5-17.5); Lymphocytes # (auto) 2.5 10 ^3/uL (0.4-5.4); Lymphocytes % (auto) 21.9 % (10.0-50.0); Mean Corpuscular Hemoglobin 30.5 pg (28.0-32.0); Mean Corpuscular Hgb Conc. 33.9 g/dL (32.0-36.0); Mean Corpuscular Volume 89.9 fL (80.0-100.0); Monocytes # (auto) 0.8 10 ^3/uL (0-1.3); Neutrophils # (auto) 7.8 10 ^3/uL (1.6-8.6); Neutrophils % (auto) 69.9 % (37.0-80.0); Nucleated Red Blood Cells % 0.1 %; Platelet Count (auto) 270 10^3/uL (140-450); Red Blood Cells 4.72 10^6/uL (4.5-5.90); Red Cell Distribution Width 12.8 % (11.8-14.3); White Blood Cell 11.2 10^3/uL (4.4-10.8)
[2024-05-23] MEDS: cloNIDine HCL 0.1 MG TAB PO ONE ×2 (01:57→12:46)
[2024-05-23 02:05] LABS: Blood Alcohol < 3.0 mg/dL (<10); Triglycerides 51 mg/dL (< 150)
[2024-05-23 02:06] LABS: Alanine Aminotransferase 63 U/L (7-40); Albumin 4.2 g/dL (3.2-4.8); Alkaline Phosphatase 137 U/L (46-116); Anion Gap 6 (5-15); Aspartate Aminotransferase 63 U/L (13-40); BUN/Creatinine Ratio 11.1 (10.0-20.0); Blood Urea Nitrogen 9 mg/dL (9-23); Calcium 9.1 mg/dL (8.7-10.4); Carbon Dioxide 26 mmol/L (20-31); Chloride 110 mmol/L (98-107); Glucose 95 mg/dL (74-106); LDL Cholesterol 71 mg/dL (< 100); Potassium 3.7 mmol/L (3.5-5.1); Sodium 142 mmol/L (136-145); Total Protein 7.6 g/dL (5.7-8.2)
[2024-05-23 02:07] LABS: Bilirubin, Total 1.7 mg/dL (0.2-1.0); Cholesterol 127 mg/dL (< 200); Creatine Kinase IFCC 440 U/L (46-171); HDL Cholesterol 48 mg/dL (40-59)
[2024-05-23 02:39] LABS: Lipase 22 U/L (12-53)
[2024-05-23] MEDS: SODIUM CHLORIDE 0.9% 1,000 ML IV ONE (03:06)
--- NOTE | 2024-05-23 03:13 | DVH ---
INDICATION: Raised Liver enzym TECHNIQUE: Multiple real-time sonographic images were obtained of the right upper quadrant. COMPARISON: None FINDINGS: The liver demonstrates increased echotexture without focal mass lesions. The liver is enlar ged, measuring 19.6 cm. Normal hepatopetal portal flow identified. No evidence of pleural effusion or ascites. There is no intrahepatic or extrahepatic ductal dilatation. The common duct was not visualized. The gallbladder is without evidence of stone or sludge. The gallbladder wall measures 0.2 cm and is w ithin normal limits. Negative sonographic jackson's sign. The right kidney measures 11.2 cm. The right kidney is normal in contour, size, and shape. The echoge nicity is normal. There is no hydronephrosis. The pancreas is not well visualized due to overlying bowel gas. IMPRESSION: 1. Hepatomegaly and hepatic steatosis. 2. Otherwise unremarkable right upper quadrant sonogram.
[2024-05-23] MEDS: NALOXONE HCL 0.4 MG/ML VIAL IV ONE (03:19)
[2024-05-23] MEDS: PANTOPRAZOLE 40 MG/10 ML VIAL INJ IV ONE (03:29)
[2024-05-23] MEDS: cefTRIAXone 1GM/50ML D5W 50 ML IV ONE (03:39)
[2024-05-23] MEDS: SODIUM CHLORIDE 0.9% 1,000 ML IV SCH ×3 (04:30→09:30)
[2024-05-23 08:00] VITALS: PULSE 76; RESP 15; O2SAT 96
[2024-05-23] MEDS: hydrALAZINE HCL 20 MG/ML VL IV ONE (08:15)
[2024-05-23] MEDS ORDERED: amLODIPine BESYLATE 5 MG TAB PO SCH (10:00)
[2024-05-23] MEDS: PANTOPRAZOLE 40 MG/10 ML VIAL INJ IV SCH (10:10)
[2024-05-23] MEDS: LOSARTAN POTASSIUM 50 MG TAB PO SCH (10:12)
[2024-05-23] MEDS: amLODIPine BESYLATE 5 MG TAB PO SCH (10:13)
[2024-05-23] MEDS: ASPirin 81 mg TAB PO SCH (10:16)
[2024-05-23] MEDS: ENOXAPARIN SOD 40 MG/0.4 ML SYRINGE SC SCH (10:17)
[2024-05-23 12:00] VITALS: BP 180/77; PULSE 87; RESP 20; TEMP 98; O2SAT 97
--- NOTE | 2024-05-23 15:09 | DVHDSRES ---
Discharge Summary Date of Admission Resident Creating Document: ZACH GARCIA RESIDENT May 22, 2024 at 23:47 Date of Discharge: May 23, 2024 Admitting Diagnosis Acute toxic encephalopathy, due to polysubstance intoxication Methamphetamine, fentanyl, phencyclidine intoxication Hypertensive urgency Wounds: multiple small bruises on the feet Labs/Diagnostic Data: Laboratory Results Test 05/23/24 00:30 05/22/24 08:25 White Blood Count 11.2 10^3/uL (4.4-10.8) Red Blood Count 4.72 10^6/uL (4.5-5.90) Hemoglobin 14.4 g/dL (13.5-17.5) Hematocrit 42.5 % (41.0-53.0) Mean Corpuscular Volume 89.9 fL (80.0-100.0) Mean Corpuscular Hemoglobin 30.5 pg (28.0-32.0) Mean Corpuscular Hemoglobin Concent 33.9 g/dL (32.0-36.0) Red Cell Distribution Width 12.8 % (11.8-14.3) Platelet Count 270 10^3/uL (140-450) Mean Platelet Volume 7.3 fL (6.9-10.8) Neutrophils (%) (Auto) 69.9 % (37.0-80.0) Lymphocytes (%) (Auto) 21.9 % (10.0-50.0) Monocytes (%) (Auto) 7.0 % (0.0-12.0) Eosinophils (%) (Auto) 0.5 % (0.0-7.0) Basophils (%) (Auto) 0.7 % (0.0-2.0) Neutrophils # (Auto) 7.8 10 ^3/uL (1.6-8.6) Lymphocytes # (Auto) 2.5 10 ^3/uL (0.4-5.4) Monocytes # (Auto) 0.8 10 ^3/uL (0-1.3) Eosinophils # (Auto) 0.1 10 ^3/uL (0-0.8) Basophils # (Auto) 0.1 10 ^3/uL (0-0.2) Nucleated Red Blood Cells 0.1 % Prothrombin Time 10.8 sec (9.3-11.8) Prothrombin Time INR 1.02 (0.9-1.15) Activated Partial Thromboplast Time 30.2 SEC (24.5-34.5) D-Dimer, Quantitative 0.40 mg/L FEU (0.0-0.49) Sodium Level 142 mmol/L (136-145) Potassium Level 3.7 mmol/L (3.5-5.1) Chloride Level 110 mmol/L (98-107) Carbon Dioxide Level 26 mmol/L (20-31) Anion Gap 6 (5-15) Blood Urea Nitrogen 9 mg/dL (9-23) Creatinine 0.81 mg/dL (0.700-1.30) Glomerular Filtration Rate Calc 107 mL/min (>90) BUN/Creatinine Ratio 11.1 (10.0-20.0) Serum Glucose 95 mg/dL (74-106) Hemoglobin A1c 5.0 % A1C (<5.7) Lactic Acid Level 0.8 mmol/L (0.4-2.0) Calcium Level 9.1 mg/dL (8.7-10.4) Total Bilirubin 1.7 mg/dL (0.2-1.0) Aspartate Amino Transferase (AST) 63 U/L (13-40) Alanine Aminotransferase (ALT) 63 U/L (7-40) Alkaline Phosphatase 137 U/L (46-116) Ammonia 44 umol/L (11-32) Creatine Kinase 449 U/L (46-171) Troponin I High Sensitivity 29 ng/L (</=54) Total Protein 7.6 g/dL (5.7-8.2) Albumin 4.2 g/dL (3.2-4.8) Triglycerides Level 51 mg/dL (< 150) Cholesterol Level 127 mg/dL (< 200) LDL Cholesterol 71 mg/dL (< 100) HDL Cholesterol 48 mg/dL (40-59) Lipase 22 U/L (12-53) Vitamin D 25-Hydroxy 18.0 ng/mL (30.0-100) Thyroid Stimulating Hormone (TSH) 0.67 uIU/mL (0.55-4.78) Plasma/Serum Blood Alcohol < 3.0 mg/dL (<10) HIV (1&2) Antibody Negative (Negative) Urine Color Light-yellow (Yellow) Urine Clarity Clear (Clear) Urine pH 5.5 (5.0-9.0) Urine Specific [place] 1.010 (1.001-1.035) Urine Protein Negative (Negative) Urine Ketones Negative (Negative) Urine Blood 1+ /uL (Negative) Urine Nitrite Negative (Negative) Urine Bilirubin Negative (Negative) Urine Urobilinogen Normal mg/dL (Negative) Urine Leukocyte Esterase 2+ /uL (Negative) Urine RBC 5 /hpf (0 - 3) Urine Microscopic WBC 39 /HPF (0-3) Urine Squamous Epithelial Cells Few /hpf (<5) Urine Bacteria Few /hpf (None Seen) Urine Glucose Normal mg/dL (Normal) Urine Opiates Screen Neg (NEGATIVE) Urine Fentanyl Screen Pos (NEGATIVE) Urine Barbiturates Screen Neg (NEGATIVE) Urine Phencyclidine Screen Pos (NEGATIVE) Urine Amphetamines Screen Pos (NEGATIVE) Urine Benzodiazepines Screen Neg (NEGATIVE) Urine Cocaine Screen Neg (NEGATIVE) Urine Cannabinoids Screen Pos (NEGATIVE) Other Laboratory Tests 05/23/24 00:30 Brief Hx & Hospital Course: HPI This is a 53-year-old male with past medical history of hypertension and polysubstance abuse brought to the hospital due to altered mental status. Patient was found altered in the parking lot of [employer], pupils were miotic and Narcan 6 mg was given at the scene. Upon my assessment at ER, the patient was lethargic, could not provide proper history. PMHx: Hypertension PSHx: No significant Family history: Not significant Social history: Patient smokes marijuana, cigarettes, methamphetamine, phencyclidine, fentanyl, lives with at home, per he is disabled due to mental status (possible schizophrenia) Home medication: Lisinopril Allergic history: Ibuprofen and tramadol Brief Hospital course Patient in the hospital was agitated and tried to assault nursing staff following which she was given Ativan, haloperidol for chemical sedation. Patient had elevated blood pressure which was being monitored and controlled with adequate medication. In the morning patient wanted to be discharged but he was advised against it as he still had high blood pressure. Patient understood the risks and left against medical advice. Consults/Reason for consult none Operations or Procedures none Condition at Discharge: Unstable Final Diagnosis/Problems List Acute toxic encephalopathy, due to polysubstance intoxication Methamphetamine, fentanyl, phencyclidine intoxication Hypertensive urgency Discharge Disposition: AMA Discharge Statement: "Patient was advised to return to the ER or call 911 if any headaches, dizziness, shortness of breath, chest pain, abdominal pain, bleeding, fevers, or worsening of medical condition. Patient was counseled about treatment plan, medications, possible side effects, patientverbalized understanding. All questions were answered to the best of my ability. This discharge took greater then 30 minutes in planning, reviewing documentation, counseling the patient, and discussing with other team members." ASSESSMENT ASSESSMENT Assessment Date of Service: May 23, 2024 Billing Provider: MAREK DON MD Common Visit Codes: 07169-GAQ/OBS DISCH DAY >30min ZACH GARCIA RESIDENT May 23, 2024 15:09 MAREK DON MD May 24, 2024 12:55
[2024-05-23] MEDS ORDERED: cefTRIAXone 1GM/50ML D5W 50 ML IV SCH (21:00)
--- NOTE | 2024-05-24 01:47 | DVHSR ---
APPROVED REPORT EXAM: LIMITED Two-dimensional and M-mode echocardiogram with Doppler and color Doppler. Blood Pressure: 164/72 mmHg INDICATION polysubstance abuse r/o heart failure RISK FACTORS Height: 6', Weight: 200 DIMENSIONS LVDd4.3 (3.8-5.7cm)LA (2D)4.5 (1.9-4.0cm)Aortic Root3.6 (2.0-3.7cm) LVDs3.1 (2.5-4.0cm)LA (MM) (1.9-4.0cm)Aortic Cusp Exc1.4 (1.5-2.0cm) EF (%) 50.0 (55-70%)Rt. Atrium4.1 (1.9-4.0cm)Asc. Aorta cm IVSd1.2 (0.7-1.1cm)RV (D) (1.8-2.4cm) PWd1.4 (0.7-1.1cm) Mitral Valve MitralMitral Stenosis E wave0.90m/sMV Mean GR.mmHg A wave1.50m/sMV Peak GR.mmHg E/A ratio0.62D MVAcm2 Aortic Valve Aortic ValveAortic Stenosis V11.60m/Gabriela Mean GR.11mmHg V22.20m/Gabriela Peak GR.19mmHg LVOT Diameter2.1 (1.8-2.4cm)Doppler AVA2.52cm2 AI P 1/2 Dmha928.20ms Other Information Quality : Technically LimitedRhythm : Technically limited study due to body habitus, patient uncooperative. Conclusion MODERATELY DILATED RV AND RA HYPOKINETIC RV DYSKINESIS OF IVS STUDY CONFIRM RV FAILURE NORMAL LV EF OF 60% NORMAL VALVES NO EFFUSION
[2024-05-24] MEDS ORDERED: LISINOPRIL 5 MG TAB PO SCH (10:00)
[2024-05-25 10:22] LABS: Hepatitis A Total Antibody Positive (Negative)
[2024-05-25 10:25] LABS: Hepatitis C Antibody Positive (Negative)
[2024-05-25 10:32] LABS: Hepatitis B Surface Antigen Negative (Negative)
--- NOTE | 2024-05-25 10:46 | ECG ---
[facility] Test Date: 2024-05-22 Test Time: 07:59:09 Pat Name: CORTES HENNING Department: ED Room: [address] [place] [address] A Gender: M It Applications Manager: MOE : 1970 Requested By: KARTHIK POWER Order Number: [id number] Reading MD: Measurements Intervals [place] Rate: 97 P: 73 [place]: 144 QRS: 22 QRSD: 79 T: -29 QT: 388 QTc: 493 Interpretive Statements Sinus rhythm Right atrial enlargement Left ventricular hypertrophy Nonspecific T abnormalities, inferior leads Borderline prolonged QT interval Please click the below link to view image of tracing.
[2024-05-25 10:50] LABS: Hepatitis B Core IgM Negative (Negative)
[2024-05-25 11:02] LABS: Hepatitis A Ab IgM Negative
[2024-05-25 11:04] LABS: Hepatitis C Antibody Reactive (Negative)
--- NOTE | 2024-05-26 07:12 | ECG ---
[facility] Test Date: 2024-05-23 Test Time: 02:11:30 Pat Name: CORTES HENNING Department: ER Room: [address] [place] [address] A Gender: M Scrummaster: COLT : 1970 Requested By: SHORTY CEDILLO Order Number: [id number] Reading MD: Measurements Intervals [place] Rate: 85 P: 72 [place]: 138 QRS: 18 QRSD: 79 T: -59 QT: 385 QTc: 458 Interpretive Statements Sinus rhythm Biatrial enlargement LVH with secondary repolarization abnormality Anterior ST elevation, probably due to LVH Please click the below link to view image of tracing.
== END 2024-05-23 13:20 | disposition left against medical advice (07) | DRG 52 ==
LOC: EDBD 08:00 → ER 08:05 → EDUNIT# 08:05 → OVERFLOW 23:47
PROVIDERS: ATTEND Anesthesiology
DX: G92.8 Other toxic encephalopathy (principal); I16.0 Hypertensive urgency; N39.0 Urinary tract infection, site not specified; Z53.29 Procedure and treatment not carried out because of patient's decision for other reasons; T40.415A Adverse effect of fentanyl or fentanyl analogs, initial encounter; T40.995A Adverse effect of other psychodysleptics [hallucinogens], initial encounter; Z88.3 Allergy status to other anti-infective agents; Z88.8 Allergy status to other drugs, medicaments and biological substances; Z79.2 Long term (current) use of antibiotics; Z79.899 Other long term (current) drug therapy; Z59.00 Homelessness unspecified; Y92.89 Other specified places as the place of occurrence of the external cause
CPT/HCPCS: 36415; 70450; 76705; 80053; 80061; 80074; 80307; 80320; 81001; 82140; 82306; 82550; 83036; 83605; 83690; 84443; 84484; 85025; 85379; 85610; 85730; 86703; 86708; 86803; 87040; 87081; 87086; 93005; 93306; 96360; 96372; G0378; J2470

== ENCOUNTER 2024-11-07 12:25 | Emergency (ER) | payer MEDICAID ==
[~2024-11-07] VITALS: Ht 175.3 cm; Wt 96.4 kg
[2024-11-07 12:29] VITALS: BP 160/96; RESP 20; TEMP 97.7; O2SAT 96
--- NOTE | 2024-11-07 12:34 | ED.PDOC ---
HPI Comments This is a 53 year-old male, with a PMHX of HTN and Heart Murmur, who presents to the ED via EMS with a chief complaint of chest pain as of last night. Per EMS, patient was found on the street at a local shoe store. Patient has a social history of MJ use, smoking cigarettes, and ETOH intoxification. Pt has no further complaints or modifying factors at this time. Patient otherwise denies cough, congestion, fever, chills, weakness, or N/V/D. Chief Complaint: Chest Pain Time Seen by MD: 12:29 Primary Care Provider: peter Reviewed Notes: Nurses Notes, Medications, Allergies Allergies: Coded Allergies: Tramadol (Verified Allergy, Mild, 12/18/17) Ibuprofen (Verified Allergy, Unknown, 09/18/16) UNOBTAINABLE (Unverified , 05/22/24) Home Meds Active Scripts Hydrocodone-Acetaminophen (Hydrocodone Bitartrate/AC 10-325 mg) 1 Tab Tab, 1 TAB PO BID, #8 TAB Prov:SHARRON MENDIETA 12/06/23 Prednisone (Prednisone) 20 Mg Tab, 40 MG PO DAILY, #20 TAB Prov:SHARRON MENDIETA 12/06/23 Cephalexin Monohydrate (Cephalexin) 500 Mg Cap, 1 CAP PO QID for 10 Days, #40 CAP Prov:KEIRY TURPIN MD 09/04/23 Naloxone HCl (Narcan) 4 Mg/0.1 Ml Spr, 4 MG NA PRN PRN, #1 BOTTLE 1 Refill Prov:KEIRY TURPIN MD 09/04/23 Hydrocodone-Acetaminophen (Hydrocodone Bitartrate/AC 5-325 mg) 1 Tab Tab, 1 TAB PO TID PRN, #30 TAB Prov:SOFYA THRASHER 11/27/22 Cyclobenzaprine Hcl (Cyclobenzaprine Hcl) 5 Mg Tab, 1 TAB PO TID PRN, #30 TAB Prov:SOFYA THRASHER 11/27/22 Information Source: Patient Mode of Arrival: EMS Severity: Moderate Timing: Hours Duration: Since onset Prehospital treatment: None Onset: At Rest, With Light Exertion, With Heavy Exertion Associated Signs and Symptoms: Other (chest pain ) Past Medical History PAST MEDICAL HISTORY: HTN Past Medical History (Other): Heart Murmur Surgical History: Unknown Family History Family History: Unknown Social History Smoker: Cigarettes Alcohol: Occasionally Drugs: Marijuana Lives In: Homeless Constitutional: denies: chills, diaphoresis, fatigue, fever, malaise, sweats, weakness, others EENTM: denies: blurred vision, double vision, ear bleeding, ear discharge, ear drainage, ear pain, ear ringing, eye pain, eye redness, hearing loss, mouth pain, mouth swelling, nasal discharge, nose bleeding, nose congestion, nose pain, photophobia, tearing, throat pain, throat swelling, voice changes, others Respiratory: denies: cough, hemoptysis, orthopnea, SOB at rest, shortness of breath, SOB with excertion, stridor, wheezing, others Cardiovascular: reports: chest pain; denies: dizzy spells, diaphoresis, Dyspnea on exertion, edema, irregular heart beat, left arm pain, lightheadedness, palpitations, PND, syncope, others Gastrointestinal: denies: abdomen distended, abdominal pain, blood streaked bowels, constipated, diarrhea, dysphagia, difficulty swallowing, hematemesis, melena, nausea, poor appetite, poor fluid intake, rectal bleeding, rectal pain, vomiting, others Genitourinary: denies: burning, dysuria, flank pain, frequency, hematuria, incontinence, penile discharge, penile sore, pain, testicle pain, testicle swelling, urgency, others Neurological: denies: dizziness, fainting, headache, left sided numbness, left sided weakness, numbness, paresthesia, pre-existing deficit, right sided numbness, right sided weakness, seizure, speech problems, tingling, tremors, weakness, others Musculoskeletal: denies: back pain, gout, joint pain, joint swelling, muscle pain, muscle stiffness, neck pain, others Integumetry: denies: bruises, change in color, change in hair/nails, dryness, laceration, lesions, lumps, rash, wounds, others Allergic/Immunocompromised: denies: Difficulty Healing, Frequent Infections, Hives, Itching, others Hematologic/Lymphatic: denies: anemia, blood clots, easy bleeding, easy bruising, swollen glands, others Endocrine: denies: excessive hunger, excessive sweating, excessive thirst, excessive urination, flushing, intolerance to cold, intolerance to heat, unexplained weight gain, unexplained weight loss, others Psychiatric: denies: anxiety, bipolar disorder, depression, hopeless, panic disorder, schizophrenia, sleepless, suicidal, others All Other Systems: Reviewed and Negative Physical Exam General Appearance: Moderate Distress HEENT: Normal ENT Inspection, Pharynx Normal, TMs Normal Neck: Full Range of Motion, Non-Tender, Normal, Normal Inspection Respiratory: Chest Non-Tender, Lungs Clear, No Accessory Muscle Use, No Respiratory Distress, Normal Breath Sounds Cardiovascular: No Edema, No JVD, No Murmur, No Gallop, Normal Peripheral Pulses, Regular Rate/Rhythm Breast Exam: Deferred Gastrointestinal: No Organomegaly, Non Tender, No Pulsatile Mass, Normal Bowel Sounds, Soft Genitalia: Deferred Pelvic: Deferred Rectal: Deferred Extremities: No calf tenderness, Normal capillary refill, Normal inspection, Normal range of motion, Non-tender, No pedal edema Musculoskeletal : Apperance: Normal Neurologic: Alert, speaker wirer II-XII nml as Tested, No Motor Deficits, Normal Affect, Normal Mood, No Sensory Deficits Cerebellar Function: NOT DONE Reflexes: NOT DONE Skin: Dry, Normal Color, Warm Peripheral Pulses: 3+ Radial (R), 3+ Radial (L) Lymphatic: No Adenopathy EKG EKG : Pulse Rate (adult): 90 [place]: Normal Cardiac Rhythm: NSR Block: None Hypertrophy: None ST: Normal Comments Biatrial Enlargement Was a procedure done? Was a procedure done?: No CP Differential Dx Differential Diagnosis: A-fib, A-Flutter, Angina, Anxiety / Panic Attack, Atrial Dysrhythmia, Electrolyte Disorder Differential Diagnosis: HTN Essential, HTN Accelerated Differential Diagnosis: Chest Wall Pain X-Ray, Labs, Meds, VS Vital Signs Date Time Temp Pulse Resp B/P (MAP) Pulse Ox O2 Delivery O2 Flow Rate FiO2 11/07/24 15:43 76 11/07/24 13:22 82 11/07/24 12:34 90 11/07/24 12:32 90 11/07/24 12:29 97.7 90 20 160/96 96 97.7 Lab Test 11/07/24 15:51 11/07/24 13:50 11/07/24 12:41 11/07/24 12:40 Range/Units Troponin I High Sensitivity Pending 02 05 </=54 ng/L White Blood Count 9.6 4.4-10.8 10^3/uL Red Blood Count 4.81 4.5-5.90 10^6/uL Hemoglobin 14.7 13.5-17.5 g/dL Hematocrit 44.1 41.0-53.0 % Mean Corpuscular Volume 91.7 80.0-100.0 fL Mean Corpuscular Hemoglobin 30.6 28.0-32.0 pg Mean Corpuscular Hemoglobin Concent 33.3 32.0-36.0 g/dL Red Cell Distribution Width 12.9 11.8-14.3 % Platelet Count 272 140-450 10^3/uL Mean Platelet Volume 6.8 L 6.9-10.8 fL Neutrophils (%) (Auto) 65.6 37.0-80.0 % Lymphocytes (%) (Auto) 24.1 10.0-50.0 % Monocytes (%) (Auto) 8.6 0.0-12.0 % Eosinophils (%) (Auto) 1.2 0.0-7.0 % Basophils (%) (Auto) 0.5 0.0-2.0 % Neutrophils # (Auto) 6.3 1.6-8.6 10 ^3/uL Lymphocytes # (Auto) 2.3 0.4-5.4 10 ^3/uL Monocytes # (Auto) 0.8 0-1.3 10 ^3/uL Eosinophils # (Auto) 0.1 0-0.8 10 ^3/uL Basophils # (Auto) 0.1 0-0.2 10 ^3/uL Nucleated Red Blood Cells 0.2 % Sodium Level 143 136-145 mmol/L Potassium Level 4.0 3.5-5.1 mmol/L Chloride Level 106 98-107 mmol/L Carbon Dioxide Level 30 20-31 mmol/L Anion Gap 7 5-15 Blood Urea Nitrogen 9 9-23 mg/dL Creatinine 1.05 0.700-1.30 mg/dL Glomerular Filtration Rate Calc 86 >90 mL/min BUN/Creatinine Ratio 8.6 L 10.0-20.0 Serum Glucose 132 H 74-106 mg/dL Calcium Level 9.3 8.7-10.4 mg/dL Urine Color [place] H Yellow Urine Clarity Turbid H Clear Urine pH 5.5 5.0-9.0 Urine Specific [place] 1.034 1.001-1.035 Urine Protein 1+ H Negative Urine Ketones Trace Negative Urine Blood 1+ H Negative /uL Urine Nitrite Negative Negative Urine Bilirubin Negative Negative Urine Urobilinogen 2 H Negative mg/dL Urine Leukocyte Esterase 3+ Negative /uL Urine RBC 25 0 - 3 /hpf Urine Microscopic WBC 111 H 0-3 /HPF Urine Squamous Epithelial Cells Few <5 /hpf Urine Bacteria Few H None Seen /hpf Urine Hyaline Casts Mod 0 - 2 /lpf Urine Mucus Moderate None Seen Urine Glucose Normal Normal mg/dL [facility] [id number] [place] [id number] Ph: [phone] DIAGNOSTIC IMAGING Diagnostic Imaging Report : [id number] Signed PATIENT: CORTES HENNING KACCT: [id number] UNIT: [id number] : 1970 LOC: ER ROOM / BED: / AGE / SEX: 53 / M ADM STATUS: REG ER SERVICE [id number] ORDERING PHYSICIAN: CORRY RO MD PROCEDURE(s): CXRP - CHEST PORTABLE REASON: sob ORDER NUMBER(s): [id number], ACCESSION NUMBER(s): [id number] CHEST RADIOGRAPH Indication: sob Technique: Single frontal view of the chest was obtained COMPARISON: XY CHEST PORTABLE on DOS: 05/22/24 FINDINGS: Lines and Tubes: None Lungs: Congestion Pleura: No effusion. No pneumothorax. Cardiomediastinal contours: Unremarkable Bones: Unremarkable IMPRESSION: Increased interstital prominence. This may represent pulmonary vascular congestion and/or viral pneumonia. Clinical correlation advised. Patient alert. Complaining of chest discomfort. Vitals stable. Answering all questions. EKG reviewed does show old changes pain Unknown whether he is taking care of himself. Cardiology consultation. Chest x-ray reviewed does show changes. Possible pneumonitis. Possible CHF. Was given Lasix. Was given steroid. Explained to the patient. Continue monitoring. Images Reviewed?: Images reviewed and evaluated by me Time of 1ST Reevaluation: 13:23 Reevaluation 1ST: Unchanged Patient Education/Counseling: Diagnosis, Treatment Family Education/Counseling: No Family Present Medical Screening: No EMC Exist At This Time SEPSIS Sepsis Screen Physician Orders Chest Portable (11/07/24 12:33) Troponin-I Hs (11/07/24 15:33) Electrocardigram (11/07/24 13:51) Electrocardigram (11/07/24 15:51) Vital Signs Date Time Temp Pulse Resp B/P (MAP) Pulse Ox O2 Delivery O2 Flow Rate FiO2 11/07/24 15:43 76 11/07/24 13:22 82 11/07/24 12:34 90 11/07/24 12:32 90 11/07/24 12:29 97.7 90 20 160/96 96 97.7 Laboratory Tests Test 11/07/24 12:41 White Blood Count 9.6 10^3/uL (4.4-10.8) Departure 1 Departure Time of Disposition: 16:30 Impression: Primary Impression: Chest pain of unknown etiology Additional Impressions: Pneumonitis CHF (congestive heart failure) Qualified Codes: I50.43 - Acute on chronic combined systolic (congestive) and diastolic (congestive) heart failure Disposition: ADMITTED INPATIENT Admit to: Med Surg Condition: Guarded Critical Care Note Critical Care Time?: No Stability Stability form required: No Heart Score Heart Score: Heart Score Response (Comments) Value History Moderate Suspicious 1 EKG Normal 0 Age 45-64 1 Risk Factors No known risk factors 0 Troponin Normal limit 0 Total 2 I personally scribed for CORRY RO MD ([email or web address]) on 11/07/24 at 12:34. Electronically submitted by Jing Lopez ([email or web address]). I personally scribed for CORRY RO MD ([email or web address]) on 11/07/24 at 12:43. Electronically submitted by Jing Lopez ([email or web address]). I personally scribed for CORRY RO MD ([email or web address]) on 11/07/24 at 13:46. Electronically submitted by Jing Lopez ([email or web address]). I personally scribed for CORRY RO MD ([email or web address]) on 11/07/24 at 14:35. Electronically submitted by Jing Lopez ([email or web address]). CORRY RO MD Nov 07, 2024 12:34
[2024-11-07 12:50] LABS: Hematocrit 44.1 % (41.0-53.0); Hemoglobin 14.7 g/dL (13.5-17.5); Mean Corpuscular Hemoglobin 30.6 pg (28.0-32.0); Mean Corpuscular Volume 91.7 fL (80.0-100.0); Nucleated Red Blood Cells % 0.2 %
[2024-11-07 13:01] LABS: Chloride 106 mmol/L (98-107); Potassium 4.0 mmol/L (3.5-5.1); Sodium 143 mmol/L (136-145)
[2024-11-07 13:02] LABS: Anion Gap 7 (5-15); Calcium 9.3 mg/dL (8.7-10.4); Carbon Dioxide 30 mmol/L (20-31)
[2024-11-07 13:07] LABS: BUN/Creatinine Ratio 8.6 (10.0-20.0); Blood Urea Nitrogen 9 mg/dL (9-23)
[2024-11-07 13:21] LABS: Glucose 132 mg/dL (74-106)
[2024-11-07 13:23] LABS: Urine Protein, UAD 1+ (Negative)
--- NOTE | 2024-11-07 13:31 | DVH ---
CHEST RADIOGRAPH Indication: sob Technique: Single frontal view of the chest was obtained COMPARISON: XY CHEST PORTABLE on DOS: 05/22/24 FINDINGS: Lines and Tubes: None Lungs: Congestion Pleura: No effusion. No pneumothorax. Cardiomediastinal contours: Unremarkable Bones: Unremarkable IMPRESSION: Increased interstital prominence. This may represent pulmonary vascular congestion and/or viral pneum onia. Clinical correlation advised.
--- NOTE | 2024-11-07 15:17 | ECG ---
[facility] Test Date: 2024-11-07 Test Time: 12:29:56 Pat Name: CORTES HENNING Department: Room: Gender: M Medical Transcription Editor: ANH : 1970 Requested By: CORRY RO Order Number: [id number] Reading MD: Measurements Intervals [place] Rate: 90 P: 36 [place]: 139 QRS: 1 QRSD: 90 T: 228 QT: 361 QTc: 442 Interpretive Statements Sinus rhythm Biatrial enlargement LVH with secondary repolarization abnormality Anterior ST elevation, probably due to LVH Please click the below link to view image of tracing.
[2024-11-07 15:43] VITALS: PULSE 76
[2024-11-07] MEDS ORDERED: FUROSEMIDE 40 MG/4 ML VIAL IV ONE (16:45)
[2024-11-07] MEDS ORDERED: methylPREDNISolone SOD SUCC 125 MG/2 ML VL IV ONE (16:45)
[2024-11-07] MEDS ORDERED: NITROGLYCERIN 0.4 MG SL TAB SL ONE (16:45)
--- NOTE | 2024-11-07 18:22 | ECG ---
[facility] Test Date: 2024-11-07 Test Time: 15:41:40 Pat Name: CORTES HENNING Department: Room: Gender: M Glaze Sprayer: ANH : 1970 Requested By: CORRY RO Order Number: [id number] Reading MD: Measurements Intervals [place] Rate: 76 P: 36 [place]: 145 QRS: -14 QRSD: 79 T: 1 QT: 386 QTc: 435 Interpretive Statements Sinus rhythm Left ventricular hypertrophy Anterior Q waves, possibly due to LVH Borderline T abnormalities, inferior leads Please click the below link to view image of tracing.
--- NOTE | 2024-11-07 19:09 | ECG ---
[facility] Test Date: 2024-11-07 Test Time: 13:22:13 Pat Name: CORTES HENNING Department: [facility] ED Patient ID: [id number] Room: Gender: M Assistant Press Operator: victor m : 1970 Requested By: CORRY RO Order Number: [id number] Reading MD: Measurements Intervals [place] Rate: 82 P: 55 ID: [id number] QRS: 14 QRSD: 78 T: -83 QT: 380 QTc: 444 Interpretive Statements Sinus rhythm Right atrial enlargement LVH with secondary repolarization abnormality Anterior Q waves, possibly due to LVH ST depr, consider ischemia, inferior leads Please click the below link to view image of tracing.
== END 2024-11-07 21:00 | disposition left against medical advice (07) ==
LOC: ER 12:25 → EDBD 12:25 → EDUNIT# 12:25 → ER 21:00
DX: J98.4 Other disorders of lung (principal); R07.89 Other chest pain; I11.0 Hypertensive heart disease with heart failure; I50.9 Heart failure, unspecified; Z88.6 Allergy status to analgesic agent; Z88.5 Allergy status to narcotic agent
CPT/HCPCS: 36415; 71045; 80048; 81001; 84484; 85025; 93005; 99285; J1938; J2919